=== PATIENT | female | born 1945 | race Caucasian/White ===

== ENCOUNTER 2017-06-15 08:00 | Outpatient (CLI) ==
[2015-06-29 18:08] VITALS: BMI 29.2
--- NOTE | 2017-06-16 11:51 | MAMMO ---
EXAM: Bilateral digital screening mammogram (2-D and 3-D) History: Screening Comparison: Bilateral mammogram 05/20/2015 Findings: MLO and CC views of bilateral breasts demonstrate scattered fibroglandular breast parenchy ma. CAD was reviewed by the radiologist. Tomosynthesis was performed. There are no dominant masses , no suspicious microcalcifications and no architectural distortions Impression: Stable negative mammogram. Recommend followup routine screening mammography in 1 year. BIRADS 1
== END 2017-06-15 08:01 | disposition home or self-care (01) ==
LOC: RAD 08:00
PROVIDERS: ATTEND Obstetrics & Gynecology
DX: Z12.31 Encounter for screening mammogram for malignant neoplasm of breast (principal)
CPT/HCPCS: 77067

== ENCOUNTER 2018-02-27 13:50 | Outpatient (CLI) ==
[2015-06-29 18:08] VITALS: BMI 29.2
--- NOTE | 2018-02-27 14:54 | DI ---
EXAM: Left foot three view HISTORY: Pain and swelling COMPARISON: None available at the time of dictation. FINDINGS: No definitive left foot acute fracture or dislocation is identified. There is moderate appearing join t space loss seen at the left first metatarsophalangeal joint suggestive of degenerative arthritis. There is a tiny posterior left calcaneal spur present.. No definitive soft tissue radiodense foreign bodies are identified. IMPRESSION: No left foot acute fracture or dislocation identified. Moderate appearing degenerative changes seen at the left first metatarsophalangeal joint. Tiny posterior left calcaneal spur.
--- NOTE | 2018-02-27 14:58 | DI ---
EXAM: LEFT ANKLE 3 VIEWS HISTORY: Pain and swelling FINDINGS: No comparison. Trabecular markings are accentuated consistent with at least mild, diffuse demineralization. There is bony spurring of the fibular tip. Tibiotalar joint is within normal limi ts. There is no joint effusion, joint dislocation or acute fracture line identified. IMPRESSION: Mild generalized demineralization. Early arthropathy.
== END 2018-02-27 13:51 | disposition home or self-care (01) ==
LOC: RAD 13:50
PROVIDERS: ATTEND Internal Medicine
DX: M25.572 Pain in left ankle and joints of left foot (principal); M25.472 Effusion, left ankle

== ENCOUNTER 2018-06-08 10:06 | Outpatient (CLI) | payer OTHER ==
[2015-06-29 18:08] VITALS: BMI 29.2
--- NOTE | 2018-06-11 11:02 | MAMMO ---
EXAM: Bilateral digital screening mammogram (2-D and 3-D) History: Screening Comparison: Bilateral mammogram 06/15/2017 Findings: MLO and CC views of bilateral breasts demonstrate scattered fibroglandular breast parenchy ma. CAD was reviewed by the radiologist. Tomosynthesis was performed. There are no dominant masses , no suspicious microcalcifications and no architectural distortions. Impression: Stable negative mammogram. Recommend followup routine screening mammography in 1 year. BIRADS 2
== END 2018-06-08 10:07 | disposition home or self-care (01) ==
LOC: RAD 10:06
PROVIDERS: ATTEND Internal Medicine
DX: Z12.31 Encounter for screening mammogram for malignant neoplasm of breast (principal)
CPT/HCPCS: 77067

== ENCOUNTER 2018-12-13 07:55 | Outpatient (CLI) ==
[2015-06-29 18:08] VITALS: BMI 29.2
--- NOTE | 2018-12-13 09:38 | US ---
EXAM: ULTRASOUND CAROTID DUPLEX, BILATERAL HISTORY: Dizziness FINDINGS: Majano-scale ultrasound, color Doppler and spectral analysis was performed. Velocities are in meters per second. By majano scale and color Doppler imaging, there were regions of heterogeneous plaque formation identi fied within the carotid bulbs and internal carotid arteries. These regions of plaque appeared to rem ain less than 50% vessel diameter. RIGHT: External carotid artery peak systolic velocity: 0.84 Common carotid artery peak systolic velocity/end diastolic velocity: 0.61/0.18 Internal carotid artery peak systolic velocity: 1.11 ICA/CCA peak systolic velocity ratio: 1.8 ICA end diastolic velocity: 0.27 LEFT: External carotid artery peak systolic velocity: 0.81 Common carotid artery peak systolic velocity/end diastolic velocity: 1.1/0.26 Internal carotid artery peak systolic velocity: 1.2 ICA/CCA peak systolic velocity ratio: 1.1 ICA end diastolic velocity: 0.39 The right and left vertebral arteries were antegrade. IMPRESSION: 1. By majano scale and color Doppler imaging, there were regions of heterogeneous plaque formation brown ntified within the carotid bulbs and internal carotid arteries. These regions of plaque appeared to remain less than 50% vessel diameter. 2. Internal carotid artery peak systolic velocities and ICA/CCA peak systolic velocity ratios indica te no hemodynamically significant stenosis bilaterally. 3. Both vertebral arteries were antegrade.
--- NOTE | 2018-12-13 11:11 | MRI ---
Examination: MRI of the brain with and without contrast 12/13/2018 Clinical information: Dizzy. Comparison: None. TECHNIQUE: Sagittal postcontrast T1, axial pre and postcontrast T1, axial T2, axial FLAIR, coronal T 2 STAR, coronal postcontrast T1 and diffusion weighted imaging was performed. FINDINGS: The midline structures and craniocervical junction are unremarkable. The ventricles are n ormal in size and configuration. There is no mass effect, midline shift or extra-axial abnormality. There are mild chronic microvascular ischemic changes within the supratentorial white matter. No in fratentorial signal abnormalities seen. No diffusion-weighted abnormality is present. Specifically, there is no evidence of an acute infarct . There are expected flow voids within the major intracranial arterial vascular structures. There i s no MR evidence of intracranial hemorrhage. No pathologic intracranial contrast enhancement seen. There is rightward nasal septal deviation. Impression: 1. No evidence of an acute infarct. 2. Mild chronic microvascular ischemic changes within the supratentorial white matter. 3. Otherwise, unremarkable MRI brain with and without contrast.
== END 2018-12-13 07:56 | disposition home or self-care (01) ==
LOC: RAD 07:55
PROVIDERS: ATTEND Internal Medicine
DX: R42 Dizziness and giddiness (principal)

== ENCOUNTER 2024-12-10 11:36 | Observation (INO) ==
[2024-12-10 11:55] LABS: BASOPHILS % (AUTO) 0.5 % (0.0-3.0); EOSINOPHILS # (AUTO) 0.2 K/ul (0.0-0.7); EOSINOPHILS % (AUTO) 2.3 % (0.0-7.0); HEMATOCRIT 38.5 % (37.0-47.0); HEMOGLOBIN 12.6 g/dl (12.0-16.0); IMMATURE GRANULOCYTE % (AUTO) 0.3 % (0.0-5.0); LYMPHOCYTES # (AUTO) 1.5 K/uL (0.60-3.4); LYMPHOCYTES % (AUTO) 17.6 (10.0-50.0); MEAN CORPUSCULAR HEMOGLOBIN 30.7 pg (27.0-31.0); MEAN CORPUSCULAR HGB CONC 32.7 (31.8-35.4); MEAN CORPUSCULAR VOLUME 93.9 fl (81.0-99.0); MONOCYTES # (AUTO) 0.7 K/uL (0.4-2.0); NEUTROPHILS # (AUTO) 6.2 K/ul (2.0-6.9); NEUTROPHILS % (AUTO) 71.3 % (42.2-75.2); PLATELET COUNT 301 10^3/uL (140-440); RDW COEFFICIENT OF VARIATION 12.2 % (11.6-14.8); WHITE BLOOD COUNT 8.74 K/ul (4.6-10.2)
[2024-12-10 12:13] LABS: ALANINE AMINOTRANSFERASE 40.3 U/L (0-35); ALBUMIN 4.63 g/dL (3.5-5.0); ALKALINE PHOSPHATASE 61.8 U/L (53-141); ASPARTATE AMINO TRANSFERASE 44.3 U/L (14-36); BILIRUBIN,TOTAL 0.43 mg/dL (0.2-1.3); BLOOD UREA NITROGEN 22.3 mg/dL (7-17); CALCIUM 10.23 mg/dL (8.4-10.2); CARBON DIOXIDE 24.4 mmol/L (22-30.0); CHLORIDE 103.1 mmol/L (98-107); CREATININE 0.84 mg/dL (0.60-1.30); GLUCOSE 95.6 mg/dL (74-106); POTASSIUM 4.19 mmol/L (3.5-5.1); SODIUM 137.5 mmol/L (134.5-145); TOTAL PROTEIN 7.49 g/dL (6.3-8.2)
[2024-12-10 12:13] LABS: MAGNESIUM 1.74 mg/dL (1.6-2.3)
[2024-12-10 12:24] LABS: TROPONIN I < 0.012 ng/ml (0.0000-0.120)
--- NOTE | 2024-12-10 12:44 | ED.PDOC ---
General ED Provider: Dr. LYDIA DUEÑAS MD Chief Complaint: Weakness Stated Complaint: 79-year-old female history of hypertension high cholesterol follows with Dr. Gil presented to the emergency department for syncope. Patient was at a she was standing up for prolonged time she felt lightheaded slightly nauseous and then syncopized. She fell down she hit her head she is not on any blood thinners. She is not having any headache but she is having mild neck pain. She denies having any chest pain, shortness of breath, palpitations. She was little confused when she first woke up the syncopal episode lasted 3 seconds or so there is no reported tongue biting shaking or loss of continence. She is not having any symptoms now other than the mild neck pain. Of note she states that she had syncopized in June and a time or 2 before that. She says that she had a stress test recently but is not sure when reports that it was normal. No fevers chills, normal p.o. intake reported. Time Seen by Provider: 12/10/24 11:37 Information Source: Patient and EMT Primary Care Provider: ELISABET GIL MD Nursing and Triage Documentation Reviewed and Agree: Yes What is Opioid Naive?: *Opioid Naive implies the patient is not already taking opioids or not chronically receiving opioids on a daily basis. *PRN dosing is not "usually" associated with tolerance. *Patients are at higher risk of over-sedation and aspiration. What is Opioid Tolerant?: *Opioid Tolerance implies less than the expected response to an opioid. *Acquired tolerance is defined by the patient taking 60mg of oral morphine daily (or equianalgesic dose of another opioid) for 1 week or more. *Often associated with chronic pain. *May take more than usual dose to achieve desired pain control. Review of Systems Review Of Systems Constitutional: Denies Chills or Fever PFSH Medical History High cholesterol E78.00 - Pure hypercholesterolemia, unspecified (ICD-10) Acute UTI N39.0 - Urinary tract infection, site not specified (ICD-10) Family History Mother Cardiac abnormality BROTHER Heart attack Social History Smoking and tobacco status: Never smoker Alcohol intake: never Substance use type: does not use Special joselito needs: No Agree to transfusion: Yes Adopted: No Caregiver/support person: No Foster care: No Household members: spouse Housing: house Marital status: M Lives independently: Yes Number of children: 2 service: No half-way: No History of recent travel: No Sexually active: No Do you think of yourself as: straight/heterosexual Current gender identity: female Seatbelt use: always Drives intoxicated or rides with intoxicated mechanic driver: No Water heater temperature set < 120 degrees: Yes Working smoke detector in home: Yes Fire extinguisher in home: Yes Carbon monoxide detector in home: Yes Surgical History History of partial hysterectomy 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 (ICD-10) History of eyelid surgery Z98.890 - Other specified postprocedural states (ICD-10) Previous back surgery Z98.89 - Other specified postprocedural states (ICD-10) Female Reproductive History Menstrual Hx Hysterectomy: Yes Hx Tubal Ligation: No Physical Exam Physical Exam Appearance: Reports Well-appearing and No pain distress Eyes: Reports BATSHEVA and EOMI ENT: Reports Ears normal, Nose normal and Dry mucosa Neck: Supple (No C-spine tenderness) Respiratory: Reports Airway patent and Breath sounds clear Cardiovascular: Reports RRR, Pulses normal, No rub and No murmur GI/: Reports Soft and Nontender Musculoskeletal: Reports Normal strength and ROM intact Skin: Reports Warm and Dry Neurological: Reports Sensation intact and Motor intact Psychiatric: Reports Affect appropriate Interpretation EKG Interpretation EKG Interpretation By: ED Physician Time of EKG #1: 11:55 Rate: Maldonado Rhythm: Sinus Ectopy: None Laveen: NL ST Segment: Normal Course Course 12/10/24 11:37 12/10/24 11:37 Orders, Labs, Meds: Lab Review 12/10/24 12/10/24 12/10/24 11:37 11:38 14:25 WBC 8.74 RBC 4.10 L Hgb 12.6 Hct 38.5 MCV 93.9 MCH 30.7 MCHC 32.7 RDW Coeff of Rosalia 12.2 Plt Count 301 Immature Gran % (Auto) 0.3 Neut % (Auto) 71.3 Lymph % (Auto) 17.6 Fallon % (Auto) 8.0 Eos % (Auto) 2.3 Baso % (Auto) 0.5 Neut # (Auto) 6.2 Lymph # (Auto) 1.5 Fallon # (Auto) 0.7 Eos # (Auto) 0.2 Baso # (Auto) 0.0 Immature Gran # (Auto) 0.0 Sodium 137.5 Potassium 4.19 Chloride 103.1 Carbon Dioxide 24.4 Anion Gap 14.19 BUN 22.3 H Creatinine 0.84 Estimated GFR (MDRD) 66.00 BUN/Creatinine Ratio 26.54 Glucose 95.6 Calcium 10.23 H Magnesium 1.74 Total Bilirubin 0.43 AST 44.3 H ALT 40.3 H Alkaline Phosphatase 61.8 Troponin I < 0.012 < 0.012 Total Protein 7.49 Albumin 4.63 Globulin 2.86 Albumin/Globulin Ratio 1.61 SARS CoV-2 RNA Rapid DENZEL 12/10/24 14:51 WBC RBC Hgb Hct MCV MCH MCHC RDW Coeff of Rosalia Plt Count Immature Gran % (Auto) Neut % (Auto) Lymph % (Auto) Fallon % (Auto) Eos % (Auto) Baso % (Auto) Neut # (Auto) Lymph # (Auto) Fallon # (Auto) Eos # (Auto) Baso # (Auto) Immature Gran # (Auto) Sodium Potassium Chloride Carbon Dioxide Anion Gap BUN Creatinine Estimated GFR (MDRD) BUN/Creatinine Ratio Glucose Calcium Magnesium Total Bilirubin AST ALT Alkaline Phosphatase Troponin I Total Protein Albumin Globulin Albumin/Globulin Ratio SARS CoV-2 RNA Rapid DENZEL Negative Orders Category Date Time Status OBSERVATION [PLACE PATIENT OBSERVATION] .TO MEDSURG ADMISSION 12/10/24 15:03 Active (MONITORED BED) EKG-(ED ONLY) Stat CARDIO 12/10/24 11:37 Completed ACTIVITY .Early Mobilization for VTE Prevention CARE 12/10/24 15:07 Active INTAKE & OUTPUT Q8HR CARE 12/10/24 15:07 Active ORTHOSTATIC VITAL SIGNS ONCE CARE 12/10/24 14:12 Active TELEMETRY MONITORING TELE CARE 12/10/24 15:03 Active VITAL SIGNS Q4HR CARE 12/10/24 15:07 Active CARDIAC DIET DIETARY 12/10/24 Dinner Ordered CBC W/ AUTO DIFF DAILY@0600 LAB 12/11/24 06:00 Ordered CBC W/ AUTO DIFF DAILY@0600 LAB 12/12/24 06:00 Ordered CBC W/ AUTO DIFF Stat LAB 12/10/24 11:37 Completed CMP [COMPREHENSIVE METABOLIC PANEL] Stat LAB 12/10/24 11:37 Completed COMPREHENSIVE METABOLIC PANEL DAILY@0600 LAB 12/11/24 06:00 Ordered COMPREHENSIVE METABOLIC PANEL DAILY@0600 LAB 12/12/24 06:00 Ordered COVID [SARS COV-2 RNA RAPID DENZEL] Stat LAB 12/10/24 14:51 Completed MAGNESIUM Stat LAB 12/10/24 11:38 Completed TROPONIN I Stat LAB 12/10/24 11:38 Completed TROPONIN I Stat LAB 12/10/24 14:25 Completed Acetaminophen [Tylenol] Meds 12/10/24 15:07 Active 650 mg PO Q4H PRN Sodium Chloride 0.9% [Sodium Chloride] 1,000 ml Meds 12/10/24 12:[address] CERVICAL SPINE W/O CONTRAST Stat RADS 12/10/24 12:[address] HEAD W/O CONTRAST Stat RADS 12/10/24 12:19 Completed CXR [CHEST, 2 VIEWS PA & LAT] Stat RADS 12/10/24 11:37 Completed Medications Generic Name Dose Route Start Last Admin Trade Name Freq PRN Reason Stop Dose Admin Acetaminophen 650 mg 12/10/24 15:07 Acetaminophen 325 Mg Tablet PO Q4H PRN Mild Pain Amlodipine Besylate 5 mg 12/10/24 21:00 Amlodipine Besylate 5 Mg Tablet PO BID [facility] Aspirin 81 mg 12/10/24 18:00 Aspirin 81 Mg Tablet. PO QDAY [facility] Atenolol 25 mg 12/11/24 09:00 Atenolol 25 Mg Tablet PO QAM [facility] Escitalopram Oxalate 10 mg 12/11/24 09:00 Escitalopram Oxalate 10 Mg Tablet PO QAM [facility] Mirabegron 25 mg 12/11/24 09:00 Mirabegron 25 Mg Tab.Er.24h PO DAILY [facility] Non-Formulary Medication 40 mg 12/11/24 09:00 Olmesartan PO QAM [facility] Non-Formulary Medication 500 mg 12/10/24 21:00 Calcium Carbonate [Calcium 500] PO BID [facility] Ondansetron HCl 4 mg 12/10/24 15:08 Ondansetron Hcl/Pf 4 Mg/2 Ml Sdv IVP Q6H PRN Nausea / Vomiting Polyethylene Glycol 17 gm 12/10/24 17:42 Polyethylene Glycol 17 Gm Powd.Pack PO DAILY PRN Constipation Potassium Chloride 10 meq 12/11/24 21:00 Potassium Chloride 10 Meq Capsule.Er PO .every other bedtime GUS Simvastatin 20 mg 12/11/24 09:00 Simvastatin 10 Mg Tablet PO DAILY GUS Discontinued Medications Generic Name Dose Route Start Last Admin Trade Name Freq PRN Reason Stop Dose Admin Sodium Chloride 1,000 mls @ 1,000 mls/hr 12/10/24 12:25 12/10/24 15:19 Sodium Chloride IV 12/10/24 13:24 Infused BOLUS ONE Infusion Vital Signs: Temp Pulse Resp BP Pulse Ox 12/10/24 11:43 98.0 F 55 L 16 159/94 H 97 Discharge Plan Discharge Patient Disposition: PLACED OBSERVATION Discharge Problem: Syncope Did you review [place] [employer] CLERK for ALL controlled substances?: Not Applicable ED Provider: LYDIA DUEÑAS Physician Progress Note: 79-year-old female hypertension high cholesterol presenting with syncopal episode. Some nausea and lightheadedness. No chest pain shortness of breath. Currently asymptomatic other than some mild neck pain. Her physical exam is largely unremarkable, vitals are stable some slight bradycardia in the high 50s with a normal blood pressure. Plan for CBC CMP troponin some fluids. Will get CT head C-spine chest x-ray TSH, will try to reach out to Dr. Gil's office. I did discuss disposition with patient earlier but she wants to discuss with her doctor first. 14:20called tech to call ct regarding impropper read earlier, tried to call myself could not get through, awaiting ct read for dispo leading to delay. i spoke w/ hospitalist earlier
[2024-12-10] MEDS: SODIUM CHLORIDE 1,000 ML IV ONE (13:01)
--- NOTE | 2024-12-10 13:23 | CT ---
EXAMINATION: SCROTAL ULTRASOUND WITH DOPPLER IMAGING HISTORY: Right testicular pain. TECHNIQUE: Sonography of the scrotal contents with color flow and spectral Doppler imaging of the te sticular vasculature was performed. Images were obtained and stored in a permanent archive. COMPARISON: None. FINDINGS: Right testis: -Size: 4.9 x 2.1 x 3.5 cm. -Parenchyma: Normal background echogenicity. 3 mm simple appearing superior right testicular cyst. -Epididymis: Normal background echogenicity. 2 separate simple appearing epididymal cysts, the large st approximating 7 mm and the smaller approximating 4 mm. -Vascularity: Normal arterial and venous doppler flow with normal spectral waveforms. Left testis: -Size: 5. 0 x 2.1 x 3.3 cm. -Parenchyma: Normal background echogenicity. 5 mm simple appearing superior left testicular cyst. -Epididymis: Normal background echogenicity. No mass. -Vascularity: Normal arterial and venous doppler flow with normal spectral waveforms. Hydrocele: None. Varicocele: None. Other: No skin thickening or edema. IMPRESSION: 1. Small simple appearing superior testicular cysts bilaterally, the largest on the right approximati ng 7 mm and on the left approximating 5 mm. No evidence of solid testicular mass. 2. Normal associated color Doppler blood flow without evidence of testicular torsion. No associated h ydrocele or varicocele changes. 3. No sonographic evidence to suggest hernia. All CT scans are performed using dose optimization techniques as appropriate to the performed exam an d include at least one of the following: Automated exposure control, adjustment of the mA and/or kV according t o size, and the use of iterative reconstruction technique.
--- NOTE | 2024-12-10 13:33 | CT ---
EXAMINATION: CT HEAD W/O CONTRAST HISTORY: trauma TECHNIQUE: Noncontrast CT of the brain was performed with images acquired from skull base to vertex. 2-D coronal and sagittal reformatted images were obtained from the axial source images. Contrast Dose: None. CT Dose Reduction Techniques Performed: Yes. COMPARISON: May 21, 2024. FINDINGS: The ventricles and sulci are within normal limits in size and configuration for patient's stated age No focus of low attenuation seen within the brain to suggest recent stroke No abnormal intracranial fluid collection is seen to suggest recent intracranial hemorrhage No abnormal intracranial mass, mass effect, brain edema, or el brain herniation is identified IMPRESSION: No acute intracranial abnormality is detected All CT scans are performed using dose optimization techniques as appropriate to the performed exam an d include at least one of the following: Automated exposure control, adjustment of the mA and/or kV according t o size, and the use of iterative reconstruction technique.
--- NOTE | 2024-12-10 14:41 | DI ---
EXAM: CHEST, 2 VIEWS PA LAT HISTORY: cough COMPARISON: 05/21/2024. FINDINGS: Cardiomediastinal silhouette and central pulmonary vessels appear normal. Lungs are clear. Osseous st ructures appear stable. Degenerative spine changes. IMPRESSION: 1. No acute intrathoracic process is identified.
[2024-12-10] MEDS ORDERED: TYLENOL PO PRN (15:07)
[2024-12-10] MEDS ORDERED: ZOFRAN SDV IVP PRN (15:08)
[2024-12-10 15:15] LABS: SARS COV-2 RNA RAPID NAAT NEGATIVE (NEGATIVE)
[2024-12-10 15:25] LABS: BILIRUBIN,URINE Negative (NEGATIVE); CLARITY,URINE Clear (CLEAR); COLOR,URINE Light (YELLOW); GLUCOSE, URINE (UA) Negative (NEGATIVE); KETONES,URINE 1+ (NEGATIVE); LEUKOCYTE ESTERASE ,URINE Negative (NEGATIVE); NITRITE,URINE Negative (NEGATIVE); PROTEIN,URINE Negative (NEGATIVE); URINE, BLOOD Trace-intact (NEGATIVE); UROBILINOGEN,URINE 0.2 (0.2)
[2024-12-10 15:31] LABS: TRIPLE PHOSPHATE CRYSTAL,UR TRACE (NOT PRESENT); URINE RBC, MICROSCOPIC 0-2 (0-2)
[2024-12-10 15:32] LABS: BACTERIA,URINE TRACE (NOT PRESENT); MUCUS,URINE TRACE (NOT PRESENT)
--- NOTE | 2024-12-10 15:53 | PCM ---
Date of Service Date Seen by Provider: 12/10/24 Time Seen by Provider: 15:40 Admit Day/Time Admission Date: 12/10/24 Admission Time: 15:00 Reason for Admission Chief Complaint: SYNCOPE, BRADYCARDIA Hospital Provider Hospital Provider: ANNIE PÉREZ, [facility] [place] Phys[place] Primary Care Physician: ELISABET BEY MD History of Present Illness History of Present Illness: 79 yo female with pmh of HTN, HLD, and sleep apnea presents to the ER following a syncopal episode. [place] episode. She states she was unconscious for a few seconds but was mildly confused when she woke back up. This morning she only had a cup of tea and a rice cake with sliced ham on it. Had not had any other oral intake. Denies any chest pain, palpitations, vision changes, weakness, slurred speech, or other symptoms. Glucose was not checked by EMS per patient but was 95.6 on labs in the ER. Heart rate in ER was running in the 50s. Rest of work-up negative for acute findings. States she takes atenolol for blood pressure and is not on any medications for her heart rate. She has had an episode similar to this in the past and it was related to dehydration. Has no complaints at this time other than being hungry and thirsty. Admitted to med/surg observation. Case Discussed With Case Discussed With: Patient's case was discussed with the ER Physicians, Dr. Prince. 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 (ICD-10) History of eyelid surgery Z98.890 - Other specified postprocedural states (ICD-10) Previous back surgery Z98.89 - Other specified postprocedural states (ICD-10) Family History Mother Cardiac abnormality BROTHER Heart attack Social History Smoking and tobacco status: Never smoker Alcohol intake: never Substance use type: does not use Special joselito needs: No Agree to transfusion: Yes Adopted: No Caregiver/support person: No Foster care: No Household members: spouse Housing: house Marital status: M Lives independently: Yes Number of children: 2 service: No penitentiary: No History of recent travel: No Sexually active: No Do you think of yourself as: straight/heterosexual Current gender identity: female Seatbelt use: always Drives intoxicated or rides with intoxicated rickshaw driver: No Water heater temperature set < 120 degrees: Yes Working smoke detector in home: Yes Fire extinguisher in home: Yes Carbon monoxide detector in home: Yes Allergies Allergies Allergy/AdvReac Type Severity Reaction Status Date / Time Sulfa (Sulfonamide AdvReac Unknown Verified 11/05/24 13:16 Antibiotics) sulfamethoxazole (From AdvReac Unknown Verified 11/05/24 13:16 Bactrim) trimethoprim (From Bactrim) AdvReac Unknown Verified 11/05/24 13:16 Current Medications Home Medications Acetaminophen (Acetaminophen 325 Mg Tablet) 650 mg PO Q4H PRN PRN Reason: Mild Pain Ondansetron HCl (Ondansetron Hcl/Pf 4 Mg/2 Ml Sdv) 4 mg IVP Q6H PRN PRN Reason: Nausea / Vomiting aspirin 81 mg tablet,delayed release 81 mg PO QDAY 12/27/22 [History Confirmed 12/10/24] estradiol 0.01% (0.1 mg/gram) vaginal cream 1 g vaginal .Twice Week 12/27/22 [History Confirmed 12/10/24] polyethylene glycol 3350 17 gram/dose oral powder (ClearLax) 17 g PO QDAY 12/27/22 [History Confirmed 12/10/24] calcium carbonate (Calcium 500) 500 mg PO BID 02/15/24 [History Confirmed 12/10/24] clobetasol 0.05 % topical cream 1 applic topical QDAY 04/17/24 [History Confirmed 12/10/24] atenolol 25 mg tablet 25 mg PO QAM 07/08/24 [History Confirmed 12/10/24] amlodipine 5 mg tablet 5 mg PO BID #180 tabs 07/16/24 [Rx Confirmed 12/10/24] mirabegron 25 mg tablet,extended release 24 hr 25 mg PO DAILY #90 tabs 07/23/24 [Rx Confirmed 12/10/24] simvastatin 20 mg tablet 20 mg PO DAILY #90 tabs 09/04/24 [Rx Confirmed 12/10/24] potassium chloride 10 mEq capsule,extended release 10 meq PO DAILY #90 caps 11/14/24 [Rx Confirmed 12/10/24] escitalopram oxalate 10 mg tablet (Lexapro) 10 mg PO QAM #90 tabs 11/25/24 [Rx Confirmed 12/10/24] olmesartan 40 mg tablet 40 mg PO QAM #90 tabs 11/25/24 [Rx Confirmed 12/10/24] triamterene 37.5 mg-hydrochlorothiazide 25 mg tablet 1 tab PO QAM #90 tabs 11/25/24 [Rx Confirmed 12/10/24] fluorouracil 5 % topical cream 1 applic topical BEDTIME 12/10/24 [History Confirmed 12/10/24] Opioid Naive vs. Tolerant Does Patient Take Opioids?: No Is Patient Opioid Naive?: Yes What is Opioid Naive?: *Opioid Naive implies the patient is not already taking opioids or not chronically receiving opioids on a daily basis. *PRN dosing is not "usually" associated with tolerance. *Patients are at higher risk of over-sedation and aspiration. Is Patient Opioid Tolerant?: No What is Opioid Tolerant?: *Opioid Tolerance implies less than the expected response to an opioid. *Acquired tolerance is defined by the patient taking 60mg of oral morphine daily (or equianalgesic dose of another opioid) for 1 week or more. *Often associated with chronic pain. *May take more than usual dose to achieve desired pain control. Review of Systems Constitutional: Reports No symptoms Head: Reports Normocephalic Eyes: Reports No symptoms Ears: Reports No symptoms Nose: Reports No symptoms Mouth: Reports No symptoms Throat: Reports No symptoms Cardiovascular: Reports Syncope Respiratory: Reports No symptoms Gastrointestinal: Reports No symptoms Genitourinary: Reports No Symptoms Musculoskeletal: Reports No symptoms Endocrine: Reports No symptoms Hematology: Reports No symptoms Immunology: Reports No symptoms Neurological: Reports No symptoms Psychiatric: Reports No symptoms Physical examination Most Recent Vital Signs: Most Recent Vital Signs Temperature 98.0 F 12/10/24 11:43 Temperature Source Infrared 12/10/24 11:43 Pulse Rate 55 L 12/10/24 11:43 Respiratory Rate 16 12/10/24 11:43 Blood Pressure 159/94 H 12/10/24 11:43 O2 Sat by Pulse Oximetry 97 12/10/24 11:43 Height 5 ft 2 in 12/10/24 11:43 Weight 73.3 kg 12/10/24 11:43 Telemetry Heart Rate 59 L 12/25/19 07:00 Appearance: Positive No Apparent Distress and Alert and Oriented x3 Skin: Positive Warm and Good Turgor HEENT: Positive Normocephalic, Atraumatic and PERRLA Neck: Positive Supple and Midline Trachea Chest/Lungs: Positive Symmetrical With Equal Breath Sounds, Clear to Auscultation Bilaterally and Good Air Movement all 4 Lung Holley Heart: Positive RRR and Pulses Normal; Negative Irregular Rhythm, Tachycardia or Bracycardia GI/: Positive Soft, Nontender, Bowel Sounds Normal and No Distention Musculoskeletal: Positive Normal Gait and Station Extremities: Positive Intact Peripheral Pulses, Stable Joints Without Laxity and Good ROM in All Joints Neurological: Positive Sensation Intact, Motor intact, Reflexes Intact, Alert, Oriented and Muscle Strength 5/5 in Upper and Lower Extremities Bilaterally; Negative Abnormal Reflexes or Focal Deficit Psychiatric: Positive Oriented x4 Labs This Visit Labs This Visit: Labs This Visit 12/10/24 12/10/24 12/10/24 11:37 11:38 14:25 WBC 8.74 RBC 4.10 L Hgb 12.6 Hct 38.5 MCV 93.9 MCH 30.7 MCHC 32.7 RDW Coeff of Ros[place] 12.2 Plt Count 301 Immature Gran % (Auto) 0.3 Neut % (Auto) 71.3 Lymph % (Auto) 17.6 [place] % (Auto) 8.0 Eos % (Auto) 2.3 Baso % (Auto) 0.5 Neut # (Auto) 6.2 Lymph # (Auto) 1.5 [place] # (Auto) 0.7 Eos # (Auto) 0.2 Baso # (Auto) 0.0 Immature Gran # (Auto) 0.0 Sodium 137.5 Potassium 4.19 Chloride 103.1 Carbon Dioxide 24.4 Anion Gap 14.19 BUN 22.3 H Creatinine 0.84 Estimated GFR (MDRD) 66.00 BUN/Creatinine Ratio 26.54 Glucose 95.6 Calcium 10.23 H Magnesium 1.74 Total Bilirubin 0.43 AST 44.3 H ALT 40.3 H Alkaline Phosphatase 61.8 Troponin I < 0.012 < 0.012 Total Protein 7.49 Albumin 4.63 Globulin 2.86 Albumin/Globulin Ratio 1.61 Urine Color Urine Clarity Urine pH Ur Specific [place] Urine Protein Urine Glucose (UA) Urine Ketones Urine Blood Urine Nitrite Urine Bilirubin Urine Urobilinogen Ur Leukocyte Esterase Urine Microscopic RBC Ur Squamous Epith Cells Triple Phos Crystals Urine Bacteria Urine Mucus SARS CoV-2 RNA Rapid DENZEL 12/10/24 12/10/24 14:51 15:16 WBC RBC Hgb Hct MCV MCH MCHC RDW Coeff of [place] Plt Count Immature Gran % (Auto) Neut % (Auto) Lymph % (Auto) [place] % (Auto) Eos % (Auto) Baso % (Auto) Neut # (Auto) Lymph # (Auto) [place] # (Auto) Eos # (Auto) Baso # (Auto) Immature Gran # (Auto) Sodium Potassium Chloride Carbon Dioxide Anion Gap BUN Creatinine Estimated GFR (MDRD) BUN/Creatinine Ratio Glucose Calcium Magnesium Total Bilirubin AST ALT Alkaline Phosphatase Troponin I Total Protein Albumin Globulin Albumin/Globulin Ratio Urine Color Light Urine Clarity Clear Urine pH 7.0 Ur Specific [place] 1.010 Urine Protein Negative Urine Glucose (UA) Negative Urine Ketones 1+ H Urine Blood Trace-intact H Urine Nitrite Negative Urine Bilirubin Negative Urine Urobilinogen 0.2 Ur Leukocyte Esterase Negative Urine Microscopic RBC 0-2 Ur Squamous Epith Cells 2-5 Triple Phos Crystals Trace Urine Bacteria Trace Urine Mucus Trace SARS CoV-2 RNA Rapid DENZEL Negative Imaging Imaging: EXAMINATION: CT HEAD W/O CONTRAST FINDINGS: The ventricles and sulci are within normal limits in size and configuration for patient's stated age No focus of low attenuation seen within the brain to suggest recent stroke No abnormal intracranial fluid collection is seen to suggest recent intracranial hemorrhage No abnormal intracranial mass, mass effect, brain edema, or el brain herniation is identified IMPRESSION: No acute intracranial abnormality is detected EXAMINATION: CT CERVICAL SPINE WITHOUT CONTRAST FINDINGS: Limited Head: Normal. Craniocervical Junction: Normal. Atlantoaxial Joint: Atlantodental interval is normal. Dens is normal. Lateral masses of C1 are normal in alignment. Alignment: Anatomic. Post-Surgical Changes/Hardware: None. Bones: No acute fracture. No chronic compression deformity. Mild degenerative disc and endplate changes with a mild degenerative facet arthropathy. 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 Soft Tissues: No prevertebral soft tissue swelling. Limited Upper Chest: Normal. Degenerative Changes: None. IMPRESSION: 1. No evidence of an acute displaced cervical spine fracture , compression deformity or subluxation. 2. Mild degenerative changes. 3. Congenital nonfusion versus chronic bony changes associated with a remote fracture involving the left lateral posterior C4 arch. Review Statement Review Statement: I have independently reviewed and interpreted the labs/EKGs/imaging that were ordered by the ER provider. I have reviewed all outside records that are available currently in our EMR including imaging/notes/labs from previous visits. Plan Plan: 1. Syncope - likely due to hypoglycemia/dehydration, received 1L fluids in ER, appears euvolemic, encourage oral intake, telemetry overnight, last echo 06/2024 EF 60%, d/c with holter monitor 2. Remote fracture at posterior C4 arch - CT showing congenital nonfusion vs chronic bony changes associated with this, last fall 3 years ago, no symptoms present 3. HTN - chronic, continue home medications 4. HLD - chronic, continue home medications DVT Prophylaxis: Ambulation Time Spent: Greater than 80 minutes spent with patient, 50% of the time spent with this patient was devoted to counseling and coordination of care. Advanced [facility] Plannin minutes spent discussing advance care planning. Disposition: Admit to: Med/Surg Observation Discussed Plan of Care with Dr. Alvin Bey. Medications Medication Orders: Medications Ordered Category Date Time Status Acetaminophen [Tylenol] Meds 12/10/24 15:07 Active 650 mg PO Q4H PRN Ondansetron HCl/Pf [Zofran Sdv] Meds 12/10/24 15:08 Active 4 mg IVP Q6H PRN
[2024-12-10 16:27] VITALS: BMI 28.9
[2024-12-10] MEDS ORDERED: MIRALAX PO PRN (17:42)
[2024-12-10] MEDS: NORVASC PO SCH (20:10)
[2024-12-10] MEDS: CALCIUM 500 + VIT D 5 MCG (200 IU) TABLET PO SCH (20:10)
[2024-12-11 05:22] VITALS: BP 146/84; TEMP 97.4
[2024-12-11 07:36] LABS: BASOPHILS # (AUTO) 0.1 K/uL (0-0.2); BASOPHILS % (AUTO) 0.7 % (0.0-3.0); EOSINOPHILS # (AUTO) 0.2 K/ul (0.0-0.7); EOSINOPHILS % (AUTO) 2.9 % (0.0-7.0); HEMATOCRIT 38.1 % (37.0-47.0); HEMOGLOBIN 12.2 g/dl (12.0-16.0); IMMATURE GRANULOCYTE % (AUTO) 0.3 % (0.0-5.0); LYMPHOCYTES # (AUTO) 1.4 K/uL (0.60-3.4); LYMPHOCYTES % (AUTO) 20.5 (10.0-50.0); MEAN CORPUSCULAR HEMOGLOBIN 30.8 pg (27.0-31.0); MEAN CORPUSCULAR VOLUME 96.2 fl (81.0-99.0); MONOCYTES # (AUTO) 0.6 K/uL (0.4-2.0); MONOCYTES % (AUTO) 8.1 (0-10); NEUTROPHILS # (AUTO) 4.7 K/ul (2.0-6.9); NEUTROPHILS % (AUTO) 67.5 % (42.2-75.2); PLATELET COUNT 288 10^3/uL (140-440); RDW COEFFICIENT OF VARIATION 12.5 % (11.6-14.8); RED BLOOD COUNT 3.96 10^6/ul (4.20-5.40); WHITE BLOOD COUNT 6.89 K/ul (4.6-10.2)
[2024-12-11 07:51] LABS: ALANINE AMINOTRANSFERASE 42.3 U/L (0-35); ALBUMIN 3.91 g/dL (3.5-5.0); ASPARTATE AMINO TRANSFERASE 45.3 U/L (14-36); BILIRUBIN,TOTAL 0.31 mg/dL (0.2-1.3); BLOOD UREA NITROGEN 20.3 mg/dL (7-17); CALCIUM 9.33 mg/dL (8.4-10.2); CARBON DIOXIDE 25.5 mmol/L (22-30.0); CHLORIDE 107.5 mmol/L (98-107); CREATININE 0.77 mg/dL (0.60-1.30); GLUCOSE 97.3 mg/dL (74-106); POTASSIUM 4.31 mmol/L (3.5-5.1); SODIUM 138.8 mmol/L (134.5-145); TOTAL PROTEIN 6.48 g/dL (6.3-8.2)
--- NOTE | 2024-12-11 08:08 | DCSUM ---
Admission Date Admission Date: 12/10/24 Discharge Date Discharge Date: 12/11/24 Admission Diagnosis Admission Diagnosis: 1. Syncope 2. Remote fracture at posterior C4 arch 3. HTN 4. HLD Discharge Diagnosis Discharge Diagnosis: 1. Syncope - No further episdoes, d/c with holter monitor 2. Remote fracture at posterior C4 arch - likely chronic/old 3. HTN - chronic, stable 4. HLD - chronic, stable Hospital Provider Hospital Provider: ANNIE P[place]REZ, [facility] [place] Primary Care Physician: ELISABET GIL MD Summary of History and Physical Summary of History and Physical: 79 yo female with pmh of HTN, HLD, and sleep apnea presents to the ER following a syncopal episode. [place]. She states she was unconscious for a few seconds but was mildly confused when she woke back up. This morning she only had a cup of tea and a rice cake with sliced ham on it. Had not had any other oral intake. Denies any chest pain, palpitations, vision changes, weakness, slurred speech, or other symptoms. Glucose was not checked by EMS per patient but was 95.6 on labs in the ER. Heart rate in ER was running in the 50s. Rest of work-up negative for acute findings. States she takes atenolol for blood pressure and is not on any medications for her heart rate. She has had an episode similar to this in the past and it was related to dehydration. Has no complaints at this time other than being hungry and thirsty. Admitted to med/surg observation. Hospital Course Subjective: Patient was monitored for further episodes of syncope overnight. Telemetry normal. No abnormal rhythms or bradycardia present. Last echo completed 06/2024, EF 60%. Eating and drinking well. No s/sx of dizziness. Reports feeling back to normal this am. Labs within normal limits. VSS. No changes to home medications Discussed findings of C2 scan likely old. No s/sx of concern. Discuss with PCP if symptoms occur. D/c with 7 day holter monitor. Appearance: Pleasant, No Apparent Distress and Alert HEENT: MMM, Supple and No JVD CVS: No Murmur, No Rubs and No Gallop Abdomen: Soft, Non-Tender and No Distention Respiratory: No Dyspnea Extremities: No Edema Vital Signs: Most Recent Vital Signs Temperature 97.4 F L 12/11/24 05:21 Temperature Source Temporal Artery Scan 12/11/24 05:21 Temperature Source Infrared 12/10/24 11:43 Pulse Rate 64 12/11/24 05:21 Respiratory Rate 17 12/11/24 05:21 Blood Pressure 146/84 H 12/11/24 05:21 Blood Pressure Mean 104 12/11/24 05:21 Blood Pressure Left Arm 173/75 12/10/24 16:04 Blood Pressure Location Left Arm 12/11/24 05:21 Blood Pressure Position Supine 12/11/24 05:21 O2 Sat by Pulse Oximetry 96 12/11/24 05:21 Oxygen Delivery Method Room Air 12/11/24 07:00 Height 5 ft 2 in 12/10/24 16:04 Weight 71.8 kg 12/10/24 16:04 Telemetry Type Remote Telemetry 12/11/24 07:00 Telemetry Monitoring Continues 12/11/24 07:00 Telemetry Heart Rate 61 12/11/24 07:00 EKG DE Interval 0.16 12/11/24 07:00 EKG QRS Interval 0.08 12/11/24 07:00 Telemetry Strip Reading NSR 12/11/24 07:00 Imaging: EXAMINATION: CT HEAD W/O CONTRAST FINDINGS: The ventricles and sulci are within normal limits in size and configuration for patient's stated age No focus of low attenuation seen within the brain to suggest recent stroke No abnormal intracranial fluid collection is seen to suggest recent intracranial hemorrhage No abnormal intracranial mass, mass effect, brain edema, or el brain herniation is identified IMPRESSION: No acute intracranial abnormality is detected EXAMINATION: CT CERVICAL SPINE WITHOUT CONTRAST FINDINGS: Limited Head: Normal. Craniocervical Junction: Normal. Atlantoaxial Joint: Atlantodental interval is normal. Dens is normal. Lateral masses of C1 are normal in alignment. Alignment: Anatomic. Post-Surgical Changes/Hardware: None. Bones: No acute fracture. No chronic compression deformity. Mild degenerative disc and endplate changes with a mild degenerative facet arthropathy. 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 Soft Tissues: No prevertebral soft tissue swelling. Limited Upper Chest: Normal. Degenerative Changes: None. IMPRESSION: 1. No evidence of an acute displaced cervical spine fracture , compression deformity or subluxation. 2. Mild degenerative changes. 3. Congenital nonfusion versus chronic bony changes associated with a remote fracture involving the left lateral posterior C4 arch. EXAM: CHEST, 2 VIEWS PA LAT FINDINGS: Cardiomediastinal silhouette and central pulmonary vessels appear normal. Lungs are clear. Osseous structures appear stable. Degenerative spine changes. IMPRESSION: 1. No acute intrathoracic process is identified. Lab Results Last 24 Hours: 12/11/24 12/10/24 12/10/24 07:20 15:16 14:51 WBC 6.89 RBC 3.96 L Hgb 12.2 Hct 38.1 MCV 96.2 MCH 30.8 MCHC 32.0 RDW Coeff of [place] 12.5 Plt Count 288 Immature Gran % (Auto) 0.3 Neut % (Auto) 67.5 Lymph % (Auto) 20.5 [place] % (Auto) 8.1 Eos % (Auto) 2.9 Baso % (Auto) 0.7 Neut # (Auto) 4.7 Lymph # (Auto) 1.4 [place] # (Auto) 0.6 Eos # (Auto) 0.2 Baso # (Auto) 0.1 Immature Gran # (Auto) 0.0 Sodium 138.8 Potassium 4.31 Chloride 107.5 H Carbon Dioxide 25.5 Anion Gap 10.11 BUN 20.3 H Creatinine 0.77 Estimated GFR (MDRD) 73.00 BUN/Creatinine Ratio 26.36 Glucose 97.3 Calcium 9.33 Magnesium Total Bilirubin 0.31 AST 45.3 H ALT 42.3 H Alkaline Phosphatase 65.0 Troponin I Total Protein 6.48 Albumin 3.91 Globulin 2.57 Albumin/Globulin Ratio 1.52 Urine Color Light Urine Clarity Clear Urine pH 7.0 Ur Specific [place] 1.010 Urine Protein Negative Urine Glucose (UA) Negative Urine Ketones 1+ H Urine Blood Trace-intact H Urine Nitrite Negative Urine Bilirubin Negative Urine Urobilinogen 0.2 Ur Leukocyte Esterase Negative Urine Microscopic RBC 0-2 Ur Squamous Epith Cells 2-5 Triple Phos Crystals Trace Urine Bacteria Trace Urine Mucus Trace SARS CoV-2 RNA Rapid DENZEL Negative 12/10/24 12/10/24 12/10/24 14:25 11:38 11:37 WBC 8.74 RBC 4.10 L Hgb 12.6 Hct 38.5 MCV 93.9 MCH 30.7 MCHC 32.7 RDW Coeff of [place] 12.2 Plt Count 301 Immature Gran % (Auto) 0.3 Neut % (Auto) 71.3 Lymph % (Auto) 17.6 [place] % (Auto) 8.0 Eos % (Auto) 2.3 Baso % (Auto) 0.5 Neut # (Auto) 6.2 Lymph # (Auto) 1.5 [place] # (Auto) 0.7 Eos # (Auto) 0.2 Baso # (Auto) 0.0 Immature Gran # (Auto) 0.0 Sodium 137.5 Potassium 4.19 Chloride 103.1 Carbon Dioxide 24.4 Anion Gap 14.19 BUN 22.3 H Creatinine 0.84 Estimated GFR (MDRD) 66.00 BUN/Creatinine Ratio 26.54 Glucose 95.6 Calcium 10.23 H Magnesium 1.74 Total Bilirubin 0.43 AST 44.3 H ALT 40.3 H Alkaline Phosphatase 61.8 Troponin I < 0.012 < 0.012 Total Protein 7.49 Albumin 4.63 Globulin 2.86 Albumin/Globulin Ratio 1.61 Urine Color Urine Clarity Urine pH Ur Specific [place] Urine Protein Urine Glucose (UA) Urine Ketones Urine Blood Urine Nitrite Urine Bilirubin Urine Urobilinogen Ur Leukocyte Esterase Urine Microscopic RBC Ur Squamous Epith Cells Triple Phos Crystals Urine Bacteria Urine Mucus SARS CoV-2 RNA Rapid DENZEL Discharge Instructions Discharge Planning: Discharge Planning > 40 minutes If patient is discharged with left ventricular systolic dysfunction: no Discharged with a beta sara? [] If no, why not? [] Discharged with an peyton/arb? [] If no, why not? [] Diagnosis: Syncope Diet: Low sodium (Cardiac) Activity: as tolerated Medications: no changes or new prescriptions Follow-up with PCP in 1 week You are to wear the Holter (heart) monitor for 7 days. Your primary care provider will receive the results to this and discuss with you. Discharge Medications: Medications at Discharge (Home Meds & RX) aspirin 81 mg tablet,delayed release 81 mg PO QDAY 12/27/22 estradiol 0.01% (0.1 mg/gram) vaginal cream 1 g vaginal .Twice Week 12/27/22 polyethylene glycol 3350 17 gram/dose oral powder (ClearLax) 17 g PO QDAY 12/27/22 calcium carbonate (Calcium 500) 500 mg PO BID 02/15/24 clobetasol 0.05 % topical cream 1 applic topical .2 x w 04/17/24 atenolol 25 mg tablet 25 mg PO QAM 07/08/24 amlodipine 5 mg tablet 5 mg PO BID #180 tabs 07/16/24 mirabegron 25 mg tablet,extended release 24 hr 25 mg PO DAILY #90 tabs 07/23/24 simvastatin 20 mg tablet 20 mg PO DAILY #90 tabs 09/04/24 escitalopram oxalate 10 mg tablet (Lexapro) 10 mg PO QAM #90 tabs 11/25/24 olmesartan 40 mg tablet 40 mg PO QAM #90 tabs 11/25/24 triamterene 37.5 mg-hydrochlorothiazide 25 mg tablet 1 tab PO QAM #90 tabs 11/25/24 fluorouracil 5 % topical cream 1 applic topical BEDTIME 12/10/24 potassium chloride 10 mEq capsule,extended release 10 meq PO .every other b edtime 12/10/24 Discharge Plan Discharge Discharge Orders: Discharge Patient (ONCE); Ordered 12/11/24 Ordered By: GUILLE KAUFFMAN Activity Restrictions/Additional Instructions: Diagnosis: Syncope Diet: Low sodium (Cardiac) Activity: as tolerated Medications: no changes or new prescriptions Follow-up with PCP in 1 week You are to wear the Holter (heart) monitor for 7 days. Your primary care provider will receive the results to this and discuss with you. Instructions: Syncope (GEN) Patient Disposition: HOME SELF-CARE Prescriptions: Continued amlodipine 5 mg tablet 5 mg PO BID Qty: 180 1RF mirabegron 25 mg tablet extended release 24 hr 25 mg PO DAILY Qty: 90 1RF simvastatin 20 mg tablet 20 mg PO DAILY Qty: 90 1RF olmesartan 40 mg tablet 40 mg PO QAM Qty: 90 1RF triamterene-hydrochlorothiazid 37.5-25 mg tablet 1 tab PO QAM Qty: 90 1RF escitalopram oxalate [Lexapro] 10 mg tablet 10 mg PO QAM Qty: 90 1RF calcium carbonate [Calcium 500] 500 mg calcium (1,250 mg) tablet 500 mg PO BID fluorouracil 5 % cream 1 applic topical BEDTIME Patient Comments: Started Monday to be applied to nose and forehead at bedtime x 3 weeks. to bring in supply potassium chloride 10 mEq capsule, extended release 10 meq PO .every other bedtime clobetasol 0.05 % cream 1 applic topical .2 x w Patient Comments: vaginal atenolol 25 mg tablet 25 mg PO QAM aspirin 81 mg tablet,delayed release (DR/EC) 81 mg PO QDAY polyethylene glycol 3350 [ClearLax] 17 gram/dose powder 17 g PO QDAY estradiol 0.01 % (0.1 mg/gram) cream 1 g vaginal .Twice Week Did you review [place] [address] [employer] for ALL controlled substances?: No Discussed opioids are addictive and Narcan is available by prescription or from pharmacy.: No Condition: Fair Referrals: ELISABET GIL MD [Primary Care Provider] - 12/19/24 10:40 am
[2024-12-11] MEDS: ASPIRIN EC PO SCH (09:40)
[2024-12-11] MEDS: MYRBETRIQ PO SCH (09:41)
[2024-12-11] MEDS: TENORMIN PO SCH (09:41)
[2024-12-11] MEDS: BENICAR PO SCH (09:41)
[2024-12-11] MEDS: LEXAPRO PO SCH (09:41)
[2024-12-11 09:54] VITALS: PULSE 60; RESP 16
[2024-12-11] MEDS ORDERED: ZOCOR PO SCH (17:00)
[2024-12-11] MEDS ORDERED: MICRO-K CAP PO SCH (21:00)
--- NOTE | 2024-12-26 09:39 | HOLTER-LT ---
PATIENT INFORMATION AND COMMENTS Attending Physician: Dr. Leonardo Bey Indications: Syncope __ Patient Medications: amlodipine, asa, atenolol, calcium, clobetasol, lexapro, estradiol, fluorouracil, mirabegron, olmesartan, potassium, simvastatin, triamterene-hydrochlorothiazide __ Pre-procedure Summary: Protocol: Standard Heart Rate Started: 12/11/2024 Minimum: 52 bpm Weight: 71.66 kg 158 lbs Ended: 12/17/2024 Maximum: 102 bpm Height: 62" Duration: 6 days 2 hrs 35 min Average: 61 bpm _ INTERPRETATIONS/OBSERVATIONS: 1. Underlying rhythm: Sinus 2. Maximum sinus heart rate: 102 bpm, Minimum sinus heart rate: 52 bpm, Average heart rate: 61 bpm 3. Atrial Fibrillation burden: 0% 4. Atrial Flutter burden: 0% 5. Pauses greater than 2.5 seconds: 0 6. PVC's: 145 with 1 QRS form. Ventricular Tachycardia heart rate greater than 100 bpm: Zero 7. PAC's/ PSVC's: 125, SV ectopic runs: 4. Fastest- 130 bpm, on day 1 at 11:45:58 a.m. Longest-4 beats on day 2 at 10:51:58 a.m. Sustained SV ectopic runs--0%, Non-sustained SV ectopic runs-- less than 0.01% 8. AV Block--none 9. Patient marker count--3, without arrhythmia/ ectopy 10. Diary--none 11. Rare PVC'S and PAC'S 12. Total monitoring time: 6 days, 2 hrs MTDD
== END 2024-12-11 11:00 | disposition home or self-care (01) ==
LOC: MEDSURG B 11:36 → ED 11:36 → MEDSURG B 15:40
PROVIDERS: ADMIT Hospitalist; ATTEND Nurse Practitioner Family